=== PATIENT | female | born 1990 | race Caucasian/White ===

== ENCOUNTER → 2016-11-14 | Outpatient (CLI) | payer BC ==
[~2016-11-14] MED LIST: ALBU1AER9; DOXY1TAB6 OR; DROS3TAB OR; LRT5 PO
== END | disposition home or self-care (01) ==
LOC: C.LABSPEC 11:29
DX: J02.9 Acute pharyngitis, unspecified (principal)

== ENCOUNTER 2019-01-01 08:57 | Inpatient (IN) ==
[2019-01-01] MEDS ORDERED: OXYTOCIN 30 UNITS/500 ML BAG IV PRN (09:16)
[2019-01-01] MEDS ORDERED: LACTATED RINGER'S 1,000 ML IV PRN (09:16)
--- NOTE | 2019-01-01 09:29 | History & Physical Report ---
Date of Service January 01, 2019 Assessment & Plan (1) Term : (2) Normal labor: admit. Patient desires minimal intervention, so expectant management. fetus category one. anticipate . History of Present Illness Chief Complaint: contractions Primary Care Provider: NO PCP Patient is a 28yowf with iup at 40 1/7 weeks who presents to labor and delivery noting increased contractions. Notes got really bad about 6:30 this am. no vb/lof. +fm. Patient was in l&D yesterday for prolonged monitoring and was 3 cm. complicated by a complex mass noted during the and removed during the early second trimester--8.5cm dermoid labs--O+/ab-/pap neg/ri/rprnr/hepb-/hiv-/gc/ct-/declined 16 week gtt/28 week 2 hr nl/gbs neg Allergies Allergy/AdvReac Type Severity Reaction Status Date / Time No Known Allergies Allergy Unverified 12/31/18 16:52 Home Medications Home Medications Medication Instructions Recorded Confirmed Type PNV cmb#95-ferrous fumarate-FA 1 tab PO DAILY 12/31/18 01/01/19 History [] Patient History Medical History History of anemia approx 10+years ago History of wisdom tooth extraction Ovarian cyst 8.5mm cyst- dermoid cyst removed 07/10/18 Surgical History H/O rhinoplasty secondary to broken nose Social History Preferred Language: Arabic Communication Ability: Effective Tool Hardener Required: No Beliefs That Will Affect Care: None marital status: Current Living Situation: Spouse Other Information That Helps Us Care for You: No Feels Safe at Home: Yes Smoking Status: Never smoker Do You Dip or Chew Tobacco: No Second Hand Exposure: No Tobacco Cessation Education Requested by Patient: No Hx Alcohol Use: No Hx Substance Use: No OB History g0 SERVICE AGENT History hx of dermoid excision no stds, no abnl paps Review of Systems All systems reviewed & are unremarkable except as noted in HPI & below Physical Exam Constitutional: WD/WN, vitals as above Gastrointestinal (Abdomen): soft, gravid, nt Genitourinary: cx--7/100/-2, membranes intact toco--q3-5min efm--125 with mod variability, accels to 150s, no decels Results & Data Vital Signs (Past 12 Hours) Vital Signs Temp Pulse Resp BP 01/01/19 09:03 97.9 F 73 20 135/84
[2019-01-01 09:32] LABS: Hematocrit (blood only) 35.6 % (37-47); Hemoglobin 12.4 g/dL (12.0-16.0); Mean Corpuscular Volume 87.7 fL (80-100); Mean Platelet Volume 10.8 fL (7.4-10.4); Platelet Count 145 K/uL (130-400); RDW Coefficient of Variation 13.6 % (11.5-14.5); Red Blood Count 4.06 M/uL (4.2-5.4); White Blood Count 14.07 K/uL (4.8-10.8)
[2019-01-01 09:42] LABS: Mean Corpuscular Hgb Conc 34.8 g/dL (32-36)
--- NOTE | 2019-01-01 11:05 | Labor Progress Brief Note ---
Date of Service January 01, 2019 Subjective screaming and writhing with contractions. not tolerating well. Assessment & Plan (1) Normal labor: will begin second stage soon. fetus reassuring. anticipate . Physical Exam Constitutional: WD/WN, vitals as above Genitourinary: cx--rim, 100/0-+1 arom--thin mec toco--q2-3min efm--125 with mod variatility, +accels, occasional early Results & Data Vital Signs (Past 12 Hours) Vital Signs Temp Pulse Resp BP 01/01/19 10:42 97.5 F L 60 20 149/78 H 01/01/19 09:03 97.9 F 73 20 135/84
--- NOTE | 2019-01-01 11:29 | Labor Progress Brief Note ---
Date of Service January 01, 2019 Subjective very uncomfortable but able to get it together to push Assessment & Plan (1) Normal labor: begin second stage. fetus overall reassuring. Will monitor closely. Physical Exam Constitutional: WD/WN, vitals as above Genitourinary: c/c/0, had to push back and anterior lip but was able to get it back and stayed back toco--q2-3min efm--120s with mod variability, variables with pushing. Results & Data Vital Signs (Past 12 Hours) Vital Signs Temp Pulse Resp BP 01/01/19 10:42 97.5 F L 60 20 149/78 H 01/01/19 09:03 97.9 F 73 20 135/84
--- NOTE | 2019-01-01 11:41 | Labor Progress Brief Note ---
Date of Service January 01, 2019 Subjective pushing with great effort Assessment & Plan (1) Normal labor: anticipate . Physical Exam Constitutional: WD/WN, vitals as above Genitourinary: cx--c/c/+1-2 toco--q2-3 efm--110 with mod variability, variables with pushing Results & Data Vital Signs (Past 12 Hours) Vital Signs Temp Pulse Resp BP 01/01/19 10:42 97.5 F L 60 20 149/78 H 01/01/19 09:03 97.9 F 73 20 135/84
[2019-01-01] MEDS ORDERED: OXYTOCIN 10 UNITS/ML VIAL ONE (12:31)
[2019-01-01] MEDS ORDERED: OXYCODONE/ACETAMINOPHEN 5mg/325mg TAB PO PRN (12:50)
[2019-01-01] MEDS ORDERED: BENZOCAINE 20% AER SPR 82.5 GM CAN EXT PRN (12:50)
[2019-01-01] MEDS ORDERED: HYDROCORTISONE ACETATE 25 MG SUPP PR PRN (12:50)
[2019-01-01] MEDS ORDERED: SUPERCREAM 0.870% 15 GM JAR EXT PRN (12:50)
[2019-01-01] MEDS ORDERED: ACETAMINOPHEN 325 MG TAB PO PRN (12:50)
[2019-01-01] MEDS ORDERED: DIPHTHERIA/TETANUS/PERTUSSIS 0.5 ML SYR/VIAL IM ONE (12:50)
[2019-01-01] MEDS ORDERED: OXYTOCIN 10 UNITS/ML VIAL IM ONE (12:55)
[2019-01-01] MEDS: IBUPROFEN 600 MG TAB PO PRN ×3 (13:57→23:56)
[2019-01-01] MEDS: DOCUSATE SODIUM 100 MG CAP PO SCH (20:41)
[2019-01-02] MEDS: IBUPROFEN 600 MG TAB PO PRN ×3 (04:02→19:28)
--- NOTE | 2019-01-02 07:17 | Obstetrical Progress Note ---
Date of Service January 02, 2019 Assessment & Plan (1) Status post vaginal delivery: Patient is a 28 year old PPD 1 s/p -Vital signs WNL bp 133/86 T36.6, -Hemoglobin was 12.4 on admission. no si/sx of anemia. -Pt is doing clinically well -Continue to encourage ambulation as tolerated, Monitor and control pain with motrin prn, Continue diet as tolerated. -Continue to support and encourage breast feeding -Routine care Supervising Physician Co-Signing Physician Notes Resident Physician Supervision Note: I interviewed and examined the patient. Discussed with Dr. Rosas and agree with findings and plan as documented in the note. Any exceptions or clarifications are listed here: [None] Documented By: Sonia Celis MD, FACOG Subjective Patient sitting up in bed this morning with baby in her arms in no acute distress. Pt reports recovering well. Patient is tolerating her diet, ambulating, passing gas, voiding, and stooling appropriately. Reports moderate lochia. Denies H/A, chest pain, palpitations and uti syx. Answered all questions, no concerns at present, pain is well controlled. Physical Exam Physical Exam: Constitutional: WD/WN, vitals as above no acute distress Eyes: normal visual patel by confrontation Neck: normal visual inspection Respiratory: normal respiratory effort, lungs clear to auscultation Cardiovascular: RRR, no murmur, no edema Heart Sounds: normal S1 and normal S2 Extremities: no calf tenderness Gastrointestinal (Abdomen): Uterus firm and below the umbilicus Results & Data Vital Signs (Past 12 Hours) Vital Signs Temp Pulse Pulse Resp BP BP Pulse Ox 01/02/19 03:55 36.6 C 60 18 133/86 01/01/19 23:45 36.8 C 60 18 139/89 100 01/01/19 20:40 36.4 C L 69 18 131/77 99 Laboratory Results 01/01/19 Range/Units 09:21 WBC 14.07 H (4.8-10.8) K/uL RBC 4.06 L (4.2-5.4) M/uL Hgb 12.4 (12.0-16.0) g/dL Hct 35.6 L (37-47) % MCV 87.7 (80-100) fL MCH 30.5 (25-34) pg MCHC 34.8 (32-36) g/dL RDW Std Deviation 44.0 (36.4-46.3) fL RDW Coeff of Louann 13.6 (11.5-14.5) % Plt Count 145 (130-400) K/uL MPV 10.8 H (7.4-10.4) fL Medications Administered Current Inpatient Medications Acetaminophen (Tylenol) 650 mg PO Q6H PRN PRN Reason: Pain/LI/Fever Stop: 01/31/19 12:49 Benzocaine (Dermoplast Pain Relieving [place]) 1 appln EXT PRN PRN PRN Reason: Perineal Discomfort Stop: 01/31/19 12:49 Last Admin: 01/01/19 16:59 Dose: 1 appln Documented by: Cocaine HCl (Supercream 0.870%) 1 gm EXT BID PRN PRN Reason: Hemorrhoidal Inflammation Stop: 01/15/19 12:49 Docusate Sodium (Colace) 100 mg PO BID ANGIE Stop: 01/31/19 20:59 Last Admin: 01/01/19 20:41 Dose: 100 mg Documented by: Hydrocortisone (Anusol Hc) 25 mg NH BID PRN PRN Reason: Hemorrhoidal Inflammation Stop: 01/31/19 12:49 Oxytocin (Pitocin) 30 units in 500 mls @ 333.333 mls/hr IV .Q1H30M PRN; Protocol PRN Reason: Bleeding Control Stop: 01/31/19 09:15 Last Admin: 01/01/19 12:34 Dose: 59.94 units/hr, 999 mls/hr Documented by: Lactated Ringer's (Lr) 1,000 mls @ 125 mls/hr IV .Q8H PRN; Protocol PRN Reason: L&D Protocol Stop: 01/03/19 09:15 Ibuprofen (Motrin) 600 mg PO Q4H PRN PRN Reason: Pain/LI/Cramping/Fever Stop: 01/31/19 12:49 Last Admin: 01/02/19 04:02 Dose: 600 mg Documented by: Oxycodone/Acetaminophen (Percocet 5mg/325mg) 1 tab PO Q4H PRN PRN Reason: Pain not relieved by... Stop: 01/15/19 12:49 Prenat Multivit/Bench Patternmaker Metal/Iron/Folic Ac ( Vitamin) 1 tab PO QAM [facility] Stop: 02/01/19 08:59 Resident Activity Tracking Resident Involvement: Resident Care Provided Care Provided: Adult Hospital Medicine
[2019-01-02 07:54] LABS: Hematocrit (blood only) 32.6 % (37-47); Hemoglobin 11.1 g/dL (12.0-16.0); Mean Corpuscular Volume 89.6 fL (80-100); Mean Platelet Volume 10.8 fL (7.4-10.4); Platelet Count 149 K/uL (130-400); RDW Coefficient of Variation 13.7 % (11.5-14.5); Red Blood Count 3.64 M/uL (4.2-5.4); White Blood Count 17.79 K/uL (4.8-10.8)
[2019-01-02] MEDS: DOCUSATE SODIUM 100 MG CAP PO SCH ×2 (08:42→22:01)
[2019-01-02] MEDS: PRENATAL VITAMIN 1 TAB PO SCH (08:42)
--- NOTE | 2019-01-02 14:43 | Delivery Summary ---
DATE OF OPERATION: 01/01/2019 PREOPERATIVE DIAGNOSES: 1. Intrauterine at 40 and 1/7th weeks. 2. Active labor. DISCHARGE DIAGNOSES: 1. Intrauterine at 40 and 1/7th weeks. 2. Active labor. PROCEDURES: 1. Amniotomy. 2. Normal spontaneous vaginal delivery. 3. Right labial and small first degree vaginal laceration with repair. SURGEON: Tamera Dash MD. ANESTHESIA: Local infiltration of lidocaine. ESTIMATED BLOOD LOSS: 400 mL. DESCRIPTION OF PROCEDURE: The patient presented to Labor and Delivery in active labor at 7+ cm. She desired an unmedicated and uninterventional labor. She progressed to 9, was very uncomfortable, was found to have an anterior lip and I obtained permission for rupture of membranes for possibly some very thin meconium. The patient then progressed and when I was able to reduce the anterior lip, she pushed to deliver a viable male infant in LESTER presentation. The nose and mouth were bulb suctioned. There was no nuchal cord. The rest of the was then delivered without difficulty. The infant was vigorous and placed on the maternal abdomen for drying and attention at 1 minute of life. The cord was clamped and cut. Cord blood and segment were obtained. Placenta was delivered spontaneously intact with 3-vessel cord. Hemostasis was obtained with IM Pitocin and the patient allowed me to give dilute IV Pitocin and fundal massage. A small first degree vaginal laceration and right labial laceration were repaired with 3-0 and 4-0 Vicryl respectively. Hemostasis was obtained. Estimated blood loss 400 mL. Apgars 8 and 9. Mother and baby doing well at the end of the delivery. I attest to the content of the Intraoperative Record and any orders documented therein. Any exceptions are noted below. MTDD
[2019-01-03 06:21] LABS: Hematocrit (blood only) 29.7 % (37-47); Hemoglobin 10.2 g/dL (12.0-16.0)
[2019-01-03] MEDS: DOCUSATE SODIUM 100 MG CAP PO SCH (08:28)
[2019-01-03] MEDS: IBUPROFEN 600 MG TAB PO PRN (08:28)
[2019-01-03] MEDS: PRENATAL VITAMIN 1 TAB PO SCH (08:28)
--- NOTE | 2019-01-03 09:00 | Obstetrical Progress Note ---
Date of Service January 03, 2019 Assessment & Plan (1) Status post vaginal delivery: Doing well. routine care. Plan d/c . Instructions given. Subjective Ambulation: ambulating normally Voiding: no voiding problems Passing Gas:: Yes Diet Tolerance:: regular diet Lochia:: Small Feeding Type:: breast feeding Physical Exam Vital Signs (Past 24 Hours) Last Vital Signs Temp 98.2 F 01/02/19 23:30 Pulse 76 01/02/19 23:30 Resp 16 01/02/19 23:30 BP 122/72 01/02/19 23:30 Pulse Ox 96 01/02/19 15:45 Constitutional WD/WN, vitals as above Cardiovascular Extremities: no calf tenderness and no edema Gastrointestinal (Abdomen) abd--soft, nt, nd, ff/nt at u
[2019-01-03 10:20] VITALS: BP 139/80; PULSE 86; TEMP 98.4; O2SAT 98
== END 2019-01-03 12:00 | disposition home or self-care (01) | DRG 807 ==
LOC: OPB 08:57 → 4S1 09:00 → 4N 16:05

== ENCOUNTER 2021-06-23 20:25 | Inpatient (IN) ==
[2021-06-23] MEDS ORDERED: OXYTOCIN 30 UNITS/500 ML BAG IV PRN ×2 (22:31→23:28)
[2021-06-23] MEDS ORDERED: LACTATED RINGER'S 1,000 ML IV PRN (22:31)
--- NOTE | 2021-06-23 22:34 | History & Physical Report ---
Date of Service June 23, 2021 Assessment & Plan (1) with 39 completed weeks gestation: (2) Normal labor: Plan: admit, fetus category one. Patient desires unmedicated delivery but would like arom for assistance. Will do so after iv placed and covid back. fetus category one. anticipate . History of Present Illness Chief Complaint: contractions Primary Care Provider: Silvio Griffith DO Patient is a 31yowf with iup at 39 5/7 weeks who presents to labor and delivery with contractions. Was initially 4-5 and rechecked an 6-7. no lof/vb. +FM. essentially uncomplicated. Had a successful ECV at 37 weeks. OB Labs: Blood Type O Positive 11/13/20 Antibody Screen NEGATIVE 11/13/20 Hemoglobin 12.3 g/dL (12.0-16.0) 04/02/21 Hematocrit 36.9 % (37-47) L 04/02/21 Mean Corpuscular Volume 86.9 fL (80-100) 11/13/20 Platelet Count 229 K/uL (130-400) 11/13/20 Rubella IgG Antibody Immune (Immune) 11/13/20 Rapid Plasma ReaginD Nonreactive (Nonreactive) 11/13/20 Hepatitis B Surface Antigen Neg (Neg) 11/13/20 HIV (1&2) Ab and P24 Ag, 4th Gener Neg (Neg) 11/13/20 OB Optional Labs: Chlamydia trachomatis RNA NOT DETECTED (NOT DETECTED) 11/13/20 Neisseria gonorrhoeae RNA NOT DETECTED (NOT DETECTED) 11/13/20 Labs Reviewed: declines cfdna, quad, msafp. 2hr gtt nl gbs neg--akh Allergies Allergy/AdvReac Type Severity Reaction Status Date / Time No Known Allergies Allergy Verified 06/18/21 08:31 Home Medications Medication Instructions Recorded Confirmed Type vit no.95-ferrous 1 tab PO DAILY 12/31/18 06/23/21 History fumarate 28 mg-folic acid 800 mcg tablet () Patient History Medical History History of anemia approx 10+years ago Ovarian cyst 8.5mm cyst- dermoid cyst removed 07/10/18 Varicella vaccination Surgical History H/O rhinoplasty secondary to broken nose History of wisdom tooth extraction Family History Grandfather (Paternal) Heart disease Grandmother (Paternal) Myocardial infarction Grandfather (Maternal) Heart disease Grandmother (Maternal) Parkinson disease Denies family history of Ovarian cancer Breast cancer Colorectal cancer Social History Smoking Status: Never smoker Second Hand Exposure: No; Do You Dip or Chew Tobacco: No; Hx Alcohol Use: No Hx Substance Use: Yes Preferred Language: Dutch Communication Ability: Effective Hired Worker Required: No Beliefs That Will Affect Care: None marital status: marital status details: Sumanth Lea (28) [phone] Current Living Situation: Spouse and Family Current Living Situation Comment: and son current occupational status: employed current occupation: [employer] Other Information That Helps Us Care for You: No Feels Safe at Home: Yes Safety Concerns: Feels Safe At This Time Assistive Devices: None OB History g1--01/03, , 7#10 oz, unmedicated RN HEMODIALYSIS CHARGE History noncontributory Physical Exam Physical Exam: cx--6-7/-1 toco--q2-4min efm--140s with mod variabilty, accels to 160d, no decels Results & Data ([facility]) Vital Signs (Past 12 Hours) Vital Signs Temp Pulse Resp BP 06/23/21 20:53 36.8 C 18 06/23/21 20:41 36.8 C 96 H 18 136/75 Coding Level of Care Code None Diagnoses with 39 completed weeks gestation Z3A.39 Normal labor O80; Z37.9
[2021-06-23 22:59] LABS: Hematocrit (blood only) 35.5 % (37-47); Mean Corpuscular Hemoglobin 30.5 pg (25-34); Mean Corpuscular Hgb Conc 33.8 g/dL (32-36); Mean Corpuscular Volume 90.1 fL (80-100); Mean Platelet Volume 10.2 fL (7.4-10.4); Platelet Count 211 K/uL (130-400); RDW Coefficient of Variation 12.4 % (11.5-14.5); RDW Standard Deviation 40.8 fL (36.4-46.3); Red Blood Count 3.94 M/uL (4.2-5.4); White Blood Count 13.94 K/uL (4.8-10.8)
--- NOTE | 2021-06-23 23:04 | Obstetrical Progress Note ---
Date of Service June 23, 2021 Assessment & Plan (1) Normal labor: Plan: expectant management s/p arom. fetus category one. anticipate . Admission and Anticipated Discharge Date Admission Date: June 23, 2021 Subjective uncomfortable with contractions Physical Exam Physical Exam: cx7+/100/-1 arom--small clear toco--q2-4 efm--130s wtih mod variability, accels to 160s, no decels Results & Data ([facility]) Vital Signs (Past 12 Hours) Vital Signs Temp Pulse Resp BP 06/23/21 20:53 36.8 C 18 06/23/21 20:41 36.8 C 96 H 18 136/75 PG Care Time/CCT Total # of Minutes Spent Total Time Spent with Patient: Total time spent is greater than 50% in coordination of care (as documented) at patient's floor/unit and/or counseling patient: Coding Level of Care Code None Diagnoses Normal labor O80; Z37.9
[2021-06-23] MEDS ORDERED: ACETAMINOPHEN 325 MG TAB PO PRN (23:28)
[2021-06-23] MEDS ORDERED: SUPERCREAM 0.870% 15 GM JAR EXT PRN (23:28)
[2021-06-23] MEDS ORDERED: bisacodyL 10 MG SUPP PR PRN (23:28)
[2021-06-23] MEDS ORDERED: BENZOCAINE 20% AER SPR 82.5 GM CAN EXT PRN (23:28)
[2021-06-23] MEDS ORDERED: HYDROCORTISONE ACETATE 25 MG SUPP PR PRN (23:28)
[2021-06-23] MEDS ORDERED: DIPHTHERIA/TETANUS/PERTUSSIS 0.5 ML SYR/VIAL IM ONE (23:28)
--- NOTE | 2021-06-23 23:33 | Delivery Summary ---
Vaginal Delivery Summary Date of Service June 23, 2021 Vaginal Delivery Summary Pre-operative Diagnosis: at 39 weeks labor Post-operative Diagnosis: same Procedure: arom EBL: 350cc Anesthesia: none Procedure: The patient presented to labor and delivery in spontaneous labor. She was 4-5 on admission, progressed to 7cm, had arom and then progressed rapidly to c/c/+2. The patient pushed for 4 contractions to deliver a viable female in kim position. The nose and mouth were bulb suctioned on the perineum and the rest of the was then delivered without difficulty. The baby was vigorous. The nose and mouth were again bulb suctioned and the infant was placed in the maternal abdomen for drying and attention. Cord was clamped and cut at one minute of life. Cord blood and segment obtained. Placenta delivered spontaneous, intact with a three vessel cord. Cervix/sulci/rectum were intact. The perineum was intact. Hemostasis obtained with dilute pitocin and fundal massage. Apgars were 8/9. Mother and baby doing well at the end of the delivery. [facility] Vaginal Delivery Charge Delivery Type Details: [facility]
[2021-06-23] MEDS: IBUPROFEN 600 MG TAB PO PRN (23:54)
[2021-06-24] MEDS: IBUPROFEN 600 MG TAB PO PRN ×4 (03:09→18:22)
[2021-06-24 05:57] LABS: Hematocrit (blood only) 32.1 % (37-47); Hemoglobin 11.1 g/dL (12.0-16.0)
--- NOTE | 2021-06-24 07:05 | Obstetrical Progress Note ---
Date of Service June 24, 2021 Assessment & Plan (1) care and examination of lactating mother: Doing well. Routine care. Breast feeding. Subjective Ambulation: ambulating normally Voiding: no voiding problems Passing Gas:: No Diet Tolerance:: regular diet Lochia:: Small Feeding Type:: breast feeding Physical Exam Constitutional WD/WN, vitals as above Cardiovascular Extremities: no calf tenderness and no edema Gastrointestinal (Abdomen) soft, nt, nd ff/nt 1 below u Results & Data ([facility]) Vital Signs (Past 12 Hours) Vital Signs Temp Pulse Pulse Resp BP BP Pulse Ox 06/24/21 03:00 36.6 C 75 16 121/73 97 06/24/21 01:55 EST 36.6 C 77 16 139/75 96 06/24/21 01:30 EST 77 131/69 06/24/21 01:15 EST 77 124/67 06/24/21 01:02 EST 90 135/73 06/24/21 01:00 EST 18 06/24/21 00:46 76 119/64 06/24/21 00:30 68 125/77 06/24/21 00:15 72 18 131/77 06/24/21 00:00 37.2 C 86 20 146/83 H 06/23/21 23:45 76 18 145/74 H 06/23/21 23:30 89 143/84 H 06/23/21 20:53 36.8 C 18 06/23/21 20:41 36.8 C 96 H 18 136/75
[2021-06-24] MEDS: DOCUSATE SODIUM 100 MG CAP PO SCH ×2 (08:33→19:56)
[2021-06-24] MEDS: PRENATAL VITAMIN 1 TAB PO SCH (08:34)
[2021-06-24] MEDS ORDERED: bisacodyL 5 MG TABEC PO SCH (20:00)
--- NOTE | 2021-06-25 06:25 | Obstetrical Progress Note ---
Date of Service <Rian Jolly DO - Last Filed: 06/25/21 07:29> June 25, 2021 Assessment & Plan <Rian Jolly DO - Last Filed: 06/25/21 07:29> (1) care and examination of lactating mother: 31 yo post op day 2 from vaginal delivery, doing well. -Continue routine post care. - vital sings reviewed and WNL. (Tmax 37.2) -Blood type O+, GBS -, Rubella Immune -Encourage ambulation, monitor and control pain with Motrin, tylenol PRN, resume regular diet, monitor lochia. -hemoglobin 11.1 on 06/24. -Discussed discharge with the patient, will follow up with Dr. Dash in outpatient clinic. <Tamera Dash MD, FACOG - Last Filed: 06/25/21 07:33> (1) care and examination of lactating mother: Subjective <Rian Jolly DO - Last Filed: 06/25/21 07:29> Ambulation: ambulating normally Voiding: no voiding problems Passing Gas:: Yes Diet Tolerance:: regular diet Lochia:: Moderate Feeding Type:: bottle feeding Current Pain Level(1-10): 0 Review of Systems Denies fever, chills, sweats Denies shortness of breath, difficulty breathing, chest pain, palpitations, chest pressure. Denies breast pain. Denies dysuria. Denies headache or changes in vision Physical Exam <Rian Jolly DO - Last Filed: 06/25/21 07:29> General: Alert, oriented. No acute distress. Cardiac: Regular rate and rhythm, no murmurs/rubs/gallops. Respiratory: Clear to auscultation bilaterally a/p, no wheezes/rales/rhonchi. No increased work of breathing. Symmetrical chest rise. No respiratory distress. Abdomen: Soft, nontender, nondistended. Bowel sounds present. Uterus: Uterine fundus firm, palpable 3 cm below umbilicus. Lower Extremities: No lower extremity edema or swelling. No deep calf pain. Denilson's negative bilaterally Results & Data ([facility]) <Rian Jolly DO - Last Filed: 06/25/21 07:29> Vital Signs (Past 12 Hours) Vital Signs Temp Pulse Resp BP 06/24/21 23:45 36.8 C 82 18 120/72 06/24/21 19:50 36.7 C 71 18 130/80 <Tamera Dash MD, FACOG - Last Filed: 06/25/21 07:33> Co-Signing Physician Notes Resident Physician Supervision Note: I interviewed and examined the patient. Discussed with Dr. llanos and agree with findings and plan as documented in the note. Any exceptions or clarif ications are listed here: Doing well. Plan d/c. Instructions given. Documented By: Tamera Dash MD, FACOG Resident Activity Tracking <Rian Jolly DO - Last Filed: 06/25/21 07:29> Resident Involvement: Resident Care Provided Care Provided: OB Delivery
[2021-06-25] MEDS: DOCUSATE SODIUM 100 MG CAP PO SCH (08:46)
[2021-06-25] MEDS: IBUPROFEN 600 MG TAB PO PRN (08:46)
[2021-06-25] MEDS: PRENATAL VITAMIN 1 TAB PO SCH (08:46)
== END 2021-06-25 09:00 | disposition home or self-care (01) | DRG 807 ==
LOC: OPB 20:25 → 4S1 20:29 → 4S2 06-24 01:04